=== PATIENT | female | born 1980 ===

== ENCOUNTER 2017-10-01 08:17 | Inpatient (IN) | payer MEDICAID, OTHER ==
[2017-10-01 08:42] VITALS: BMI 30.2
[2017-10-01] MEDS ORDERED: Lactated Ringer's 1,000 ML IV ONE (09:00)
[2017-10-01] MEDS ORDERED: Oxytocin 30 units/LR 500ML 30 U/500 ML BAG IV ONE ×2 (09:00→13:21)
[2017-10-01 09:26] LABS: BASO % 0.3 % (0.0-2.0); EOS % 0.1 % (0.0-4.0); HEMOGLOBIN 14.3 g/dL (12.0-16.0); LYMPH % 9.8 % (20.0-40.0); MEAN CELL VOLUME 94.6 fl (81.0-99.0); MEAN CORPUSCULAR HEMOGLOBIN 31.9 pg (27.0-31.0); MEAN CORPUSCULAR HGB CONC 33.8 g/dL (33.0-37.0); MEAN PLATELET VOLUME 7.5 fl (7.2-11.7); MONO # 0.5 K/uL (0.0-0.8); MONO % 5.2 % (0.0-10.0); NEUT # 8.5 K/uL (1.8-7.0); NEUT % 84.6 % (50.0-75.0); PLATELET COUNT 251 K/uL (130-400); RBC 4.49 Mil/uL (3.80-5.20); WHITE BLOOD COUNT 10.1 K/uL (4.8-10.8)
[2017-10-01] MEDS ORDERED: Lactated Ringer's 1,000 ML IV SCH ×2 (10:05→21:30)
[2017-10-01] MEDS ORDERED: Bupivacaine HCl 0.25% PF (10 ml) Inj ONE (10:28)
[2017-10-01] MEDS ORDERED: Fentanyl/Bupivacaine HCl 250 ML EPI ONE (10:28)
[2017-10-01] MEDS: Lactated Ringer's 1,000 ML IV SCH (10:35)
--- NOTE | 2017-10-01 10:51 | HP ---
HISTORY OF PRESENT ILLNESS: This is a 37-year-old G1 at 38 weeks and 2 days with an EDC of 10/13/2017 by 6 plus week ultrasound, IVF conceived presents with very painful contractions , reports that the contractions started around 1:00 a.m. and have become increasingly more painful. Denied leaking of fluid, reports bloody show and reports positive movements. [facility] with Dr. Junior Fleming. This is an IVF conceived . The patient is advanced maternal age. She declined amniocentesis. On 04/05/2017, her first trimester screen was within range and Panorama was low risk with male fetus. This is also complicated by the fact that the baby is LGA. On 2017 ultrasound, estimated weight was 3896 grams, in the 96th percentile. GBS, done on 09/15/2017, was negative. PAST MEDICAL HISTORY: Seasonal allergies PAST SURGICAL HISTORY: The patient underwent open appendectomy around 2004. MEDICATIONS: vitamins. ALLERGIES: NO KNOWN DRUG ALLERGIES. FAMILY HISTORY: The patient's paternal grandfather is , had prostate cancer. SOCIAL HISTORY: The patient denies tobacco, alcohol or illicit drug use. [employer] HISTORY: The patient reports her menarche was about 17 years old, reports regular periods. Denies any sexually transmitted diseases or any abdominal Pap smears. LABS: Blood type B positive. RPR nonreactive. Hepatitis B surface antigen negative. HIV negative. Rubella immune, Chlamydia and gonorrhea were negative. Cystic fibrosis was negative. On 02/18/2017, urine culture was negative. On 04/05/2017, first trimester screen was negative and Panorama was low risk, male fetus. On 04/15/2017, Pap and HPV were negative. On 04/15/2018, maternal serum AFP was negative. On 07/12/2017, one-hour Glucola was 137. On 08/02/2017, syphilis and HIV were negative. On 09/15/2017, group B strep was negative. PHYSICAL EXAMINATION: VITAL SIGNS: Afebrile. Vital signs stable. GENERAL: The patient appears very uncomfortable, especially during the contractions. HEART: Regular rate and rhythm. LUNGS: In the bases of the lungs, there are slight rhonchi. ABDOMEN: Soft, nontender, gravid. EXTREMITIES: Nontender. No edema. VAGINAL: 6-7 cm, 80% effaced and -1 station at 8:39 a.m. Bloody show present. EXTERNAL MONITORING: Baseline is in the 130s with moderate variability and positive accelerations. TOCODYNAMOMETER: Contractions like every 2-3 minutes. ASSESSMENT AND PLAN: This is a 37-year-old G1 at 38 weeks and 2 days in active labor. Admitted to labor and delivery. NST is reactive. GBS is negative. Patient is unsure about epidural and would like try nitrous oxide for pain. Chandana West MD MTDD
[2017-10-01 12:02] LABS: LYMPHOCYTE 6 % (20-50); MONOCYTE 3 % (0-10); NEUTROPHIL 91 % (42-75); PLATELET ESTIMATE NORMAL (NORMAL); TOTAL CELLS COUNTED 100
[2017-10-01 12:03] LABS: ANISOCYTOSIS SLIGHT; OVALOCYTES SLIGHT
[2017-10-01 12:04] LABS: LARGE PLATELETS PRESENT
--- NOTE | 2017-10-01 12:07 | OBHP ---
Datetime: 10/01/2017 12:04 IP Adm Impression: Term, intrauterine IP Admit Plan: Admit to unit; Initiate labor protocol Admit Comment, IP Provider: 37 yo G1 at 38+2 wks w/ IVF-conceived , in labor. Pt admitted to L_D. FHT reactive. GBS negative. H_P dictated, "[id number]" (ES) Extremities - PN: Normal Abdomen - PN: Normal Lungs - PN: Abnormal Heart - PN: Normal Neurologic - PN: Normal General - PN: Normal FHR - Baseline A Provider: 130's Membranes, Provider: Intact EGA AdmitDate IP: 38.2 Vital Signs Provider: Reviewed IP Indication for Induction: Not Applicable IP Chief Complaint: Uterine contractions NICHD Variability Prov Fetus A: Moderate 6-25bpm NICHD Accel Fetus A IP Provider: 15X15 Dilatation, Provider: 6-7 Effacement, Provider: 80 Station, Provider: -1 Genitourinary Exam: Normal Datetime: 10/01/2017 12:01 Back - PN: Normal HEENT - PN: Normal Contraction Comments Provider: 2-3 FHR Category Provider Fetus A: Category I NICHD Decel Fetus A IP Provider: None
--- NOTE | 2017-10-01 12:13 | OBADHP ---
Datetime: 10/01/2017 12:07 FHR - Baseline A Provider: 130's Amniotic Fluid Color, Provider: Clear Membranes, Provider: Ruptured Contraction Comments Provider: 2-3 Vital Signs Provider: Reviewed NICHD Variability Prov Fetus A: Moderate 6-25bpm NICHD Accel Fetus A IP Provider: 15X15 FHR Category Provider Fetus A: Category I NICHD Decel Fetus A IP Provider: None Dilatation, Provider: 7-8 Effacement, Provider: 80 Station, Provider: -1 Datetime: 10/01/2017 12:04 Admit Comment, IP Provider: 37 yo G1 at 38+2 wks w/ IVF-conceived , in labor. Pt admitted to L_D. FHT reactive. GBS negative. H_P dictated, "[id number]" (ES) Extremities - PN: Normal Abdomen - PN: Normal Lungs - PN: Abnormal Heart - PN: Normal Neurologic - PN: Normal General - PN: Normal IP Chief Complaint: Uterine contractions Genitourinary Exam: Normal EGA AdmitDate IP: 38.2 IP Adm Impression: Term, intrauterine IP Admit Plan: Admit to unit; Initiate labor protocol Datetime: 10/01/2017 12:01 Back - PN: Normal HEENT - PN: Normal
--- NOTE | 2017-10-01 12:15 | OBPN ---
Datetime: 10/01/2017 12:07 IP Progress Impression: Normal progression of labor IP Procedures: Artificial ROM IP Progress Plan: Augmentation Membranes, Provider: Ruptured Amniotic Fluid Color, Provider: Clear Contraction Comments Provider: 2-3 FHR - Baseline A Provider: 130's IP Progress Note Comment: 37 yo G1 at 38+2 wks w/ IVF-conceived , in labor, now comfortable w/ epidural FHT reassuring, GBS negative Continue current managment Vital Signs Provider: Reviewed NICHD Accel Fetus A IP Provider: 15X15 FHR Category Provider Fetus A: Category I NICHD Variability Prov Fetus A: Moderate 6-25bpm Dilatation, Provider: 7-8 Effacement, Provider: 80 Station, Provider: -1 NICHD Decel Fetus A IP Provider: None
[2017-10-01] MEDS ORDERED: Lidocaine 2% PF (10 ml) Amp ONE (18:08)
[2017-10-01] MEDS ORDERED: EPINEPHrine 1 mg/ml (1:1000) Inj ONE (18:09)
[2017-10-01] MEDS ORDERED: ceFAZolin IV 1 gm in Dextrose 1 GM/50 ML BAG IVPB ONE (18:30)
[2017-10-01] MEDS ORDERED: Morphine 1 mg/ml preservative-free Inj(Duramorph) ONE (19:00)
[2017-10-01] MEDS ORDERED: DiphenhydrAMINE 50 mg/ml Inj IVP PRN (19:41)
[2017-10-01] MEDS ORDERED: Oxycodone/Acetaminophen 5/325 mg Tab PO PRN ×2 (19:44)
--- NOTE | 2017-10-01 20:09 | OBDS ---
DELIVERY PERSONNEL Delivery Doctor: Gloria West MD Chief Environmental Commitment Officer: Nelson Ziegler RN/William Anesthesiologist: Ethel Bosch MD Resident: Dr Stauffer MATERNAL INFORMATION Delivery Anesthesia: Epidural Medications in Delivery: Pitocin Placenta Cultured: No Provider Comments: Pre-op dx: 37 yo G1 at 38+2 wks w/ arrest of descent Post-op dx: Same Procedure: Primary low transverse section Surgeon: Brett Asistants: Drs. Rich Chou and Sultan Stauffer, PGY-1 Anesthesiologist: Dr. Bosch Ansethesia: Epidural Findings: Viable male in cephalic presentation delivered through meconium-stained fluid. A pgars 9 and 9. Wt 3510 gms, 7#12. Nl appearing uterus, tubes, and ovaries. Complications: None EBL: 900mL LABOR SUMMARY EDC: 10/13/2017 00:00 No. Babies in Womb: 1 LABOR INFORMATION Group B Beta Strep: Negative MEMBRANES Membranes Rupture Method: Artificial Rupture of Membranes: 10/01/2017 12:07 Length of Rupture (hrs): 6.78 Amniotic Fluid Color: Clear Amniotic Fluid Amount: Large Amniotic Fluid Odor: Normal STAGES OF LABOR Stage 3 hrs: 0 Stage 3 min: 1 CSECTION DELIVERY Primary Indication: Failure of Descent CSection Urgency: Emergency CSection Incidence: Primary Labor: Labor Elective: Nonelective CSection Incision: Lower Uterine Transverse BABY A INFORMATION Infant Delivery Date/Time: 10/01/2017 18:54 Method of Delivery: Born in Route : No : N/A Forceps: N/A Vacuum Extraction: N/A Shoulder Dystocia : No SHOULDER DYSTOCIA BABY A Infant Delivery Date/Time: 10/01/2017 18:54 PRESENTATION/POSITION BABY A Presentation: Cephalic Cephalic Presentation: Vertex Breech Presentation: N/A PLACENTA INFORMATION BABY A Placenta Delivery Time : 10/01/2017 18:55 Placenta Method of Delivery: Expressed Placenta Status: Delivered SCORES BABY A Heart Rate 1 min: >100 bpm Resp Effort 1 min: Good Cry Reflex Irritability 1 min: Cough or Sneeze or Pulls Away Muscle Tone 1 min: Active Motion Color 1 min: Body [place], Extremities Blue Resuscitation Effort 1 min: Tactile Stimulation SCORE 1 MIN: 9 Heart Rate 5 min: >100 bpm Resp Effort 5 min: Good Cry Reflex Irritability 5 min: Cough or Sneeze or Pulls Away Muscle Tone 5 min: Active Motion Color 5 min: Body [place], Extremities Blue SCORE 5 MIN: 9 INFORMATION BABY A Gestational Age at Delivery: 38.2 Gestational Status: Term Infant Outcome : Liveborn Infant Condition : Stable Infant Sex: Male IDENTIFICATION/MEDS BABY A ID Band Number: [id number] ID Band Location: Left Leg; Left Arm Vitamin K Given : Not Given Erythromycin Given: Not Given WEIGHT/LENGTH BABY A Infant Birthweight (gms): 3510 Infant Weight (lb): 7 Weight (oz): 12 CORD INFORMATION BABY A No. Cord Vessels: 3 Nuchal Cord : N/A Nuchal Cord Other: n/a True Knot: n/a Cord pH Baby Arterial: n/a Cord pH Baby Venous: n/a Cord Blood Taken: Yes Banking/Donate Info: n/a Suction: Mouth; Nose ASSESSMENT BABY A Infant Complications: None Physical Findings at Delivery: Within Normal Limits Respirations: Appears Normal Restaurant Recruiter/ALS Called : No Infant Care By: Dr Strauss/Wily/Pola Garrison Transferred To: Remains with Mother
[2017-10-01] MEDS: Simethicone 80 mg Chewtab PO SCH (22:00)
--- NOTE | 2017-10-02 00:46 | OP ---
PROCEDURE DATE: 10/01/2017 PREOPERATIVE DIAGNOSIS: This is a 37-year-old G1 at 38 weeks and 2 days with arrest of descent. POSTOPERATIVE DIAGNOSIS: This is a 37-year-old G1 at 38 weeks and 2 days with arrest of descent. PROCEDURE: Primary low transverse section. SURGEON: Chandana West MD ASSISTANTS: Drs. Rich Chou and Sultan Stauffer, PGY-1. Dr. Chou was the first surgical training specialist and participated in the surgery for the entire duration of the case. He helped create exposure. He also helped maintain hemostasis, operated throughout the case on the side the patient that was across from him and assisted in the delivery of the infant by applying fundal pressure. This case could not have been completed without his assistance. TYPE OF ANESTHESIA: Epidural. ANESTHESIA ADMINISTERED BY: Dr. Bosch COMPLICATIONS: None. ESTIMATED BLOOD LOSS: About 900 mL. FINDINGS: Viable male in cephalic presentation delivered through meconium-stained fluid. is 9 and 9 at one and five minutes respectively. The weight is 3510 grams or 7 pounds 12 ounces. Normal-appearing uterus, tubes and ovaries. It should be noted that the urine in the [place] was red prior to the case and it was still red at the end of the case. DESCRIPTION OF PROCEDURE: The patient was taken to the operating room after the epidural anesthesia had been bolused. She was prepped and draped in the normal sterile fashion in dorsal supine position with a leftward tilt. A time-out was done. A [place] had been placed in her bladder prior to the procedure. The epidural was tested and found to be adequate. A Pfannenstiel skin incision was then made with a scalpel and carried through to the underlying layer of fascia with the Bovie. The fascia was incised in the midline, and the incision was extended laterally with the Bovie over a Dacia. The inferior aspect of the fascial incision was then grasped with Hiram clamp, elevated, and the underlying rectus muscles dissected off bluntly with the Bovie. Attention was then turned to the superior aspect of this incision, which in a similar fashion was grasped, tented up with Hiram clamp, and rectus muscles dissected off bluntly and with the Bovie. The rectus muscles were then in the midline, and the peritoneum was identified, tented up and entered sharply with the Metzenbaum scissors. The peritoneal incision was then extended superiorly and inferiorly with good visualization of the bladder. The bladder blade was then inserted and the vesicouterine peritoneum was identified, grasped with the pickups and entered sharply with the Metzenbaum scissors. The incision was then extended laterally and the bladder flap was created digitally. The bladder blade was then reinserted and the lower uterine segment was incised in transverse fashion with the scalpel. The uterine incision was then extended digitally in a cephalocaudal direction. The bladder blade was removed. The infant's head delivered atraumatically. The nose and mouth were suctioned with a bulb suction. The cord was clamped and cut. The was handed out to the waiting woodworking shop hand. Cord blood was collected. The placenta was then delivered as the uterus was massaged. The uterus was then exteriorized and cleared of all clots and debris with a dry sponge curettage. The uterine incision was repaired with 0 Vicryl in a running locked fashion. A second layer of the same suture was used in an imbricating fashion to reinforce the incision and for hemostasis. The abdomen was then well irrigated. The uterus was returned to the abdomen. The gutters were cleared of all clots. The uterine incision was re-examined and found to be hemostatic. The peritoneum was then closed with running 0 chromic. A few interrupted stitches of 2-0 chromic were placed to reapproximate the rectus muscle. The fascia was then approximated with 0 Vicryl in a running fashion. The subcutaneous fat was well irrigated. The Bovie was applied to the small bleeders. A running stitch of 2-0 plain gut was used to close the space of the subcutaneous fat. The skin was then closed in subcuticular fashion with 4-0 Monocryl. The patient tolerated the procedure well. Sponge, lap, and needle counts were correct. The patient received 1 g of Ancef prior to the procedure. The patient was taken to recovery room in stable condition. Chandana West MD JOAN
[2017-10-02] MEDS: Lactated Ringer's 1,000 ML IV SCH (03:51)
[2017-10-02] MEDS: Simethicone 80 mg Chewtab PO SCH ×4 (04:00→21:28)
[2017-10-02 07:58] LABS: MEAN CELL VOLUME 96.1 fl (81.0-99.0); MEAN CORPUSCULAR HEMOGLOBIN 32.3 pg (27.0-31.0); MEAN CORPUSCULAR HGB CONC 33.6 g/dL (33.0-37.0); RBC 3.06 Mil/uL (3.80-5.20); RED CELL DISTRIBUTION WIDTH 14.1 % (11.5-14.5)
[2017-10-02 08:06] LABS: HEMOGLOBIN 9.9 g/dL (12.0-16.0)
[2017-10-02] MEDS ORDERED: Influenza Vaccine 18yr & older 0.5 ML/45 MCG SYR IM ONE (09:00)
--- NOTE | 2017-10-02 21:54 | OBPPN ---
Datetime: 10/02/2017 21:47 PP Pain Prov: Within normal limits PP Nausea Prov: Denies PP Flatus Prov: Yes PP BM Prov: No PP Breasts Prov: Normal PP Heart Prov: Normal PP Lungs Prov: Normal PP Abdomen/Uterus Prov: Normal PP Lochia Prov: Normal PP Vulva/Perineum Prov: Not Done PP CVA Tenderness Prov: Normal PP Extremities Prov: Normal PP C/S Incision Prov: Normal PP Progress Prov: Normal PP Impression Prov: Normal progression PP Plan Prov: Continue present management PP Progress Note Prov: She feels fine. She was able to ambulate to bathroom and hallways without di fficulty. No dizziness. No SOB. Tala lochia H/H 04/02 A: S/P for failure of descent Anemia - asymptomatic PLAN: cont post op care Vital Signs Provider PP: Reviewed; Within Normal Limits
[2017-10-03] MEDS: Simethicone 80 mg Chewtab PO SCH ×4 (04:00→21:53)
--- NOTE | 2017-10-03 16:53 | OBPPN ---
Datetime: 10/03/2017 16:51 PP Pain Prov: Within normal limits PP Nausea Prov: Denies PP Flatus Prov: Yes PP BM Prov: No PP Breasts Prov: Normal PP Heart Prov: Normal PP Lungs Prov: Normal PP Abdomen/Uterus Prov: Normal PP Lochia Prov: Normal PP Vulva/Perineum Prov: Normal PP CVA Tenderness Prov: Normal PP Extremities Prov: Normal PP Comments Phys Exam Prov: Incision clean, dry, intact Uterus firm, below umbilicus No deep Tenderness bilaterally PP Impression Prov: Normal progression PP Plan Prov: Continue present management PP Progress Note Prov: Postoperative day #2 status post , recovering well Patient out of bed, ambulate Regular diet Pain control Venodyne's while in bed Anticipate discharge home tomorrow IP PP Procedures: None Vital Signs Provider PP: Reviewed; Within Normal Limits
[2017-10-04] MEDS: Simethicone 80 mg Chewtab PO SCH (03:53)
--- NOTE | 2017-10-04 10:18 | OBPPN ---
Datetime: 10/04/2017 10:16 PP Pain Prov: Within normal limits PP Nausea Prov: Denies PP Flatus Prov: Yes PP Breasts Prov: Normal PP Heart Prov: Normal PP Lungs Prov: Normal PP Abdomen/Uterus Prov: Normal PP Lochia Prov: Normal PP Vulva/Perineum Prov: Normal PP CVA Tenderness Prov: Normal PP Extremities Prov: Normal PP Impression Prov: Normal progression PP Plan Prov: Discharge PP Progress Note Prov: Patient denies CP, no SOB, no N/V, tolerating PO diet, ambulating/voiding wel l, mild lochia, abodminal pain well controlled, +flatus A/P POD #3 1. discharge home 2. Discharge instructions reviewed IP PP Procedures: None Vital Signs Provider PP: Reviewed; Within Normal Limits
--- NOTE | 2017-10-04 10:18 | OBDCSUM ---
Datetime: 10/04/2017 10:17 Discharged to, Provider: Home Follow up at, Provider: OB Disch Instr Activity: Normal activity Disch Instr Diet: Regular Discharge Instructions, Provider: Routine instructions given Discharge Diagnosis, Provider: Term Delivered Discharge Time: 10/04/2017 10:17 Follow up in weeks, Provider: 1 wk, and 6 wks Disch Referrals: None Contraception discussed, Prov: Yes
[2017-10-04 19:32] VITALS: BP 111/71; PULSE 82; RESP 20; TEMP 97.4; O2SAT 100
== END 2017-10-04 14:34 | disposition home or self-care (01) | DRG 766 ==
LOC: H.EROB2 08:17 → H.L&D 09:11 → H.OB/GYN 22:43
PROVIDERS: ADMIT Obstetrics & Gynecology; ATTEND Obstetrics & Gynecology
PROC: 10D00Z1 Extraction of Products of Conception, Low, Open Approach (ICD-10-PCS; principal; 2017-10-01)
PROC: 4A1HXCZ Monitoring of Products of Conception, Cardiac Rate, External Approach (ICD-10-PCS; 2017-10-01)
PROC: 3E0234Z Introduction of Serum, Toxoid and Vaccine into Muscle, Percutaneous Approach (ICD-10-PCS; 2017-10-02)
DX: O32.4XX0 Maternal care for high head at term, not applicable or unspecified (principal); O36.63X0 Maternal care for excessive fetal growth, third trimester, not applicable or unspecified; O77.0 Labor and delivery complicated by meconium in amniotic fluid; O62.1 Secondary uterine inertia; Z3A.38 38 weeks gestation of pregnancy; Z37.0 Single live birth; Z23 Encounter for immunization